=== PATIENT | female | born 1930 | race Caucasian/White ===

== ENCOUNTER 2016-06-28 16:22 | Inpatient (IN) | payer OTHER, MEDICARE ==
[2016-06-28] VITALS (22 sets, daily range): BP systolic 36–141; BP diastolic 22–86; PULSE 70–149; RESP 16–23; TEMP 92–95; O2SAT 62–100
[~2016-06-28] VITALS: Ht 157.5 cm; Wt 65.8 kg
[~2016-06-28 16:22] MED LIST: AMLO5TAB22 PO; ASPI81TA82 PO; ENAL10TA7 PO; EPINEPHrine HCL (1:10,000) 1 MG/10 ML SYRINGE IV ONE; LEVO50TA4 PO; PROT40TA PO; SODIUM BICARBONATE 8.4% INJ 50 MEQ/50 ML SYR IV ONE
[2016-06-28 16:40] LABS: AUTOMATED NEUTROPHIL # 6.7 TH/MM3 (1.8-7.7); BASOPHIL # 0.1 TH/MM3 (0-0.2); BASOPHIL % 0.9 % (0.0-2.0); EOSINOPHIL % 0.2 % (0.0-4.0); HEMATOCRIT 39.6 % (35.0-46.0); LYMPH % 26.5 % (9.0-44.0); LYMPHOCYTE # 2.5 TH/MM3 (1.0-4.8); MEAN CELL VOLUME 88.6 FL (80.0-100.0); MEAN CORPUSCULAR HEMOGLOBIN 30.1 PG (27.0-34.0); NEUT % 69.4 % (16.0-70.0); PLATELET COUNT 230 TH/MM3 (150-450); RED BLOOD COUNT 4.47 MIL/MM3 (4.00-5.30); RED CELL DISTRIBUTION WIDTH 12.5 % (11.6-17.2); WHITE BLOOD COUNT 9.6 TH/MM3 (4.0-11.0)
[2016-06-28] MEDS ORDERED: NOREPINEPHRINE 4 MG/4 ML AMP ONE (16:42)
[2016-06-28 16:49] LABS: HEMO FLAGS DIFF FINAL
[2016-06-28 16:53] LABS: BLOOD, URINE SMALL (NEG); GLUCOSE,URINE NEG (NEG); KETONE, URINE TRACE mg/dL (NEG); NITRITE,URINE NEG (NEG); PH, URINE 5.5 (5.0-8.5)
--- NOTE | 2016-06-28 16:53 | PD ---
HPI Chief Complaint: Code Blue Time Seen by Provider: 16:47 Travel History International Travel<30 days: No Contact w/Intl Traveler<30days: No Traveled to known affect area: No History of Present Illness HPI 85-year-old female brought in by ambulance in cardiac arrest. Apparently the patient had a fall while going to the mailbox which was unwitnessed. A nearby neighbor found her lying on the ground. She was brought inside. About 30 minutes later she was unresponsive. When EMS arrived she was pulseless, unresponsive, and in PEA. ACLS protocol started by them. Combitube placed. She was given 2 doses of epinephrine prior to arrival. For a brief moment she had ROSC with an apparent tachycardia. Upon arrival to the emergency department , CPR in progress, and ACLS protocol continued. Combitube replaced with a 7.5 [place] ET tube by me. Patient was given one amp of epi, 1 amp of bicarbonate, and one amp of calcium chloride with ROSC. Right femoral central line then placed. [place] cervical collar placed here in the emergency department. PFSH Past Medical History Heart Rhythm Problems: No Cardiac Catheterization: No Cardiovascular Problems: Yes High Cholesterol: No Congestive Heart Failure: No Diabetes: No Diminished Hearing: No Hypertension: Yes Thyroid Disease: Yes ?: Not Past Surgical History Coronary Artery Bypass Graft: No Hysterectomy: Yes Social History Alcohol Use: No Tobacco Use: No Substance Use: No Allergies-Medications (Allergen,Severity, Reaction): Coded Allergies: Sulfa (Verified Allergy, Unknown, N/V, 06/28/16) Penicillin (Verified Adverse Reaction, Mild, 06/28/16) Reported Meds & Prescriptions Reported Meds & Active Scripts Active Active Prescriptions or Reported Medications Unobtainable Review of Systems ROS Limitations: Clinical Condition, Unresponsive Physical Exam Narrative GENERAL: Well-developed, well-nourished, elderly-appearing female, unresponsive SKIN: Warm and dry. Superficial abrasions to right face. No other signs of trauma. HEAD: Skin exam as above. Normocephalic. EYES: Pupils equal and round, nonreactive, 5 mm. ENT: Combitube in place. Dark gastric contents in posterior pharynx, face, and neck. NECK: Trachea midline. No JVD. CARDIOVASCULAR: Pulseless. RESPIRATORY: No spontaneous respirations. Combitube/BVM. GASTROINTESTINAL: Abdomen soft, mildly distended. MUSCULOSKELETAL: No obvious deformities. No clubbing. No cyanosis. No edema. NEUROLOGICAL: Unresponsive. Data Data Last Documented VS Vital Signs Date Time Temp Pulse Resp B/P Pulse Ox O2 Delivery O2 Flow Rate FiO2 06/28/16 16:55 94 Bag Valve 06/28/16 16:50 100 06/28/16 16:50 107 16 52/36 06/28/16 16:27 95.0 Orders Complete Blood Count With Diff (06/28/16 16:32) Prothrombin Time / Inr (Pt) (06/28/16 16:32) Act Partial Throm Time (Ptt) (06/28/16 16:32) Type And Screen (06/28/16 16:32) Fibrinogen (06/28/16 16:32) Urinalysis - C+S If Indicated (06/28/16 16:32) Iv Access Insert/Monitor (06/28/16 16:32) Ecg Monitoring (06/28/16 16:32) Oximetry (06/28/16 16:32) Oxygen Administration (06/28/16 16:32) Comprehensive Metabolic Panel (06/28/16 16:40) Norepinephrine Inj (Levophed Inj) (06/28/16 16:42) Blood Culture (06/28/16 16:47) Ct Brain W/O Iv Contrast(Rout) (06/28/16 ) Ct Cerv Spine W/O Contrast (06/28/16 ) Chest, Single Ap (06/28/16 ) Norepinephrine-Dextrose Drip (Levophed-D (06/28/16 17:00) Terbutaline Inj (Brethine Inj) (06/28/16 17:00) Bruce-Gastric Tube Insert/Mon (06/28/16 16:47) Ckmb (Isoenzyme) Profile (06/28/16 16:55) Troponin I (06/28/16 16:55) Patient Transfer (06/28/16 ) CKMB (06/28/16 16:25) CKMB% (06/28/16 16:25) Labs Laboratory Tests Test 06/28/16 06/28/16 06/28/16 06/28/16 16:25 16:30 16:35 16:45 Sodium Level 123 MEQ/L Potassium Level 4.0 MEQ/L Chloride Level 84 MEQ/L Carbon Dioxide Level 11.9 MEQ/L Anion Gap 27 MEQ/L Blood Urea Nitrogen 33 MG/DL Creatinine 1.60 MG/DL Estimat Glomerular Filtration 31 ML/MIN Rate Random Glucose 227 MG/DL Calcium Level 9.7 MG/DL Total Bilirubin 1.8 MG/DL Aspartate Amino Transf 42 U/L (AST/SGOT) Alanine Aminotransferase 27 U/L (ALT/SGPT) Alkaline Phosphatase 82 U/L Total Creatine Kinase 236 U/L Creatine Kinase MB 8.2 NG/ML Creatine Kinase MB % 3.5 % Troponin I LESS THAN 0.02 NG/ML Total Protein 7.0 GM/DL Albumin 2.5 GM/DL Blood Type B POSITIVE Antibody Screen NEGATIVE Blood Bank Comment White Blood Count 9.6 TH/MM3 Red Blood Count 4.47 MIL/MM3 Hemoglobin 13.4 GM/DL Hematocrit 39.6 % Mean Corpuscular Volume 88.6 FL Mean Corpuscular Hemoglobin 30.1 PG Mean Corpuscular Hemoglobin 34.0 % Concent Red Cell Distribution Width 12.5 % Platelet Count 230 TH/MM3 Mean Platelet Volume 9.4 FL Neutrophils (%) (Auto) 69.4 % Lymphocytes (%) (Auto) 26.5 % Monocytes (%) (Auto) 3.0 % Eosinophils (%) (Auto) 0.2 % Basophils (%) (Auto) 0.9 % Neutrophils # (Auto) 6.7 TH/MM3 Lymphocytes # (Auto) 2.5 TH/MM3 Monocytes # (Auto) 0.3 TH/MM3 Eosinophils # (Auto) 0.0 TH/MM3 Basophils # (Auto) 0.1 TH/MM3 CBC Comment DIFF FINAL Differential Comment Prothrombin Time 10.8 SEC Prothromb Time International 1.0 RATIO Ratio Activated Partial 38.4 SEC Thromboplast Time Fibrinogen 667 mg/dL Urine Collection Type CATH Urine Color YELLOW Urine Turbidity CLEAR Urine pH 5.5 Urine Specific [place] 1.026 Urine Protein 100 mg/dL Urine Glucose (UA) NEG mg/dL Urine Ketones TRACE mg/dL Urine Occult Blood SMALL Urine Nitrite NEG Urine Bilirubin NEG Urine Leukocyte Esterase NEG Urine RBC 0-3 /hpf Urine WBC 0-2 /hpf Urine Amorphous Sediment FEW Microscopic Urinalysis Comment CATH-CULT NOT IND Urine Collection Time 16:45 Test 06/28/16 16:49 Lactic Acid Level 18.2 mmol/L [facility] Medical Decision Making Medical Screen Exam Complete: Yes Emergency Medical Condition: Yes Interpretation(s) EKG: Sinus, rate 72, rightward axis, RBBB, inferior and lateral ST depressions, no ST segment elevations. Differential Diagnosis Cardiac arrest, ND, intracranial trauma/ICH, cervical spine injury Narrative Course 5:05 PM: Case discussed with solar power installer Dr. Goodman. He agrees with emergent CT head and cervical spine here, and afterwards the patient will be emergently transferred to the ICU at the main hospital. Critical Care Narrative Aggregate critical care time was 45 minutes. Time to perform other separately billable procedures was not included in the critical care time. My time did not include minutes spent treating any other patients simultaneously or on activities that did not directly contribute to the patient's treatment. The services I provided to this patient were to treat and/or prevent clinically significant deterioration that could result in: I provided critical care services requiring my management, as noted below: Chart data review, documentation time, medication orders and management, vital sign assessments/reviewing monitor data, ordering and reviewing lab tests, ordering and interpreting/reviewing x-rays and diagnostic studies, care of the patient and discussion of the patient with the admitting physicians. Procedures Procedure Narrative Emergent intubation: The patient was put in optimal position for the procedure. The patient was intubated with a 7.5 cuffed endotracheal tube. Tube placement was confirmed by visualization of the tube and balloon passing through the cords, capnometry and subsequent chest x-ray. Breath sounds were equal and well aerated bilaterally postintubation. No breath sounds over stomach. Central line: CENTRAL VENOUS LINE: The site was prepped with ChloraPrep and sterilely draped. The deep vein was cannulated using normal Seldinger technique. A triple lumen central line was placed in the right femoral vein under ultrasound guidance site and secured with simple interrupted suture. The site was sterilely dressed. Diagnosis Primary Impression: Cardiac arrest Admitting Information Admitting Physician Requests: Admit Scripts Unable to Obtain Active Prescriptions or Reported Meds Pratik Billy MD Jun 28, 2016 16:53
[2016-06-28 16:54] LABS: APTT (PATIENT) 38.4 SEC (24.3-30.1); PROTHROMBIN TIME - PATIENT 10.8 SEC (9.8-11.6)
[2016-06-28] MEDS ORDERED: NOREPINEPHRINE-DEXTROSE DRIP 250 ML IV SCH (17:00)
[2016-06-28] MEDS ORDERED: TERBUTALINE INJ 1 MG/ML AMP SQ PRN ×2 (17:00→20:00)
[2016-06-28 17:01] LABS: ALKALINE PHOSPHATASE 82 U/L (45-117); ALT (GPT) 27 U/L (10-53); ANION GAP 27 MEQ/L (5-15); AST (GOT) 42 U/L (15-37); BICARBONATE 11.9 MEQ/L (21.0-32.0); BLOOD UREA NITROGEN 33 MG/DL (7-18); CHLORIDE 84 MEQ/L (98-107); GLOMERULAR FILTRATION RATE 31 ML/MIN (>89); TOTAL BILIRUBIN ADULT 1.8 MG/DL (0.2-1.0)
[2016-06-28 17:02] LABS: SODIUM (NA) 123 MEQ/L (136-145)
[2016-06-28 17:06] LABS: METHOD OF COLLECTION CATH
[2016-06-28 17:07] LABS: COMMENT (UR) CATH-CULT NOT IND; CULTURE IF INDICATED CATH CULTURE NOT IND; RBC, URINE 0-3 /hpf (0-3); URINE COLOR YELLOW (YELLW/STRAW); WBC, URINE 0-2 /hpf (0-5)
[2016-06-28] MEDS ORDERED: EPINEPHrine 2 MG/D5W 250 ML IV SCH ×2 (17:15)
--- NOTE | 2016-06-28 17:15 | RADHPO ---
EXAM DATE/TIME: 06/28/2016 16:51 [facility] COMPARISON: CHEST SINGLE AP, January 27, 2014, 18:18. INDICATIONS : Post intubation. MEDICAL HISTORY : Unobtainable. SURGICAL HISTORY : Unobtainable. ENCOUNTER: Initial ACUITY: 1 day PAIN SCORE: Non-responsive. LOCATION: chest FINDINGS: Central predominant infiltrates are seen of both lungs. No large effusion seen. No pneumothorax. Ther e is right hilar fullness. Normal heart size. Endotracheal tube tip is about 3 cm above the johnathon. There is a nasogastric tube coiled in the stoma ch. CONCLUSION: 1. Bilateral central infiltrates with differential of pneumonia and noncardiogenic pulmonary edema. 2. Right hilar lymphadenopathy or mass not excludable. A PA and lateral chest x-ray should be done wh en clinically feasible. 3. Appropriate position of the endotracheal and nasogastric tubes. Brad Garcia MD on June 28, 2016 at 17:11 Board Certified Radiologist. This report was verified electronically.
[2016-06-28 17:17] LABS: CREATINE KINASE 236 U/L (26-192)
[2016-06-28 17:21] LABS: BLOOD GAS BASE EXCESS -18.7 mmol/L (-2-2); BLOOD GAS CARBOXYHEMOGLOBIN 0.7 % (0-4); BLOOD GAS HCO3 12 mmol/L (22-26); BLOOD GAS METHEMOGLOBIN 1.5 % (0-2); BLOOD GAS O2 HGB SATURATION 83 % (90-100); BLOOD GAS OXYGEN CONTENT 13.7 Vol % (12.0-20.0); BLOOD GAS PCO2 61 mmHG (38-42); BLOOD GAS PO2 82 mmHG (61-120); BLOOD GAS TOTAL HGB 11.8 G/DL (12.0-16.0); TEMP CORR TO 98.6
[2016-06-28 17:22] LABS: CRITICAL VALUE YES; FIO2 100 %; OXYGEN DEVICE VENT; VENT SETTINGS AC16/VT500/PEEP8
[2016-06-28 17:23] LABS: DRAW SITE LT FEMORAL; NUMBER OF ARTERIAL PUNCTURES 1; STAT YES
[2016-06-28 17:29] LABS: CKMB 8.2 NG/ML (0.5-3.6)
[2016-06-28] MEDS ORDERED: SODIUM CHLOR 0.9% 1000 ML INJ 1,000 ML IV ONE ×2 (17:30→20:00)
--- NOTE | 2016-06-28 17:42 | RADHPO ---
EXAM DATE/TIME: 06/28/2016 17:25 [facility] COMPARISON: No previous studies available for comparison. INDICATIONS : Trauma, fall today. RADIATION DOSE: 62.23 CTDIvol (mGy) MEDICAL HISTORY : Hypertension. SURGICAL HISTORY : Hysterectomy. ENCOUNTER: Initial ACUITY: 1 day PAIN SCALE: Non-responsive LOCATION: Bilateral head TECHNIQUE: Multiple contiguous axial images were obtained of the head. Using automated exposure control and adj ustment of the mA and/or kV according to patient size, radiation dose was kept as low as reasonably a chievable to obtain optimal diagnostic quality images. FINDINGS: CEREBRUM: Periventricular low attenuation changes seen involving both cerebral hemispheres. This is symmetrical in nature. The ventricles are normal for age. No evidence of midline shift, mass lesion, hemorrhage or acute infarction. No extra-axial fluid collections are seen. POSTERIOR FOSSA: The cerebellum and brainstem are intact. The 4th ventricle is midline. The cerebellopontine angle i s unremarkable. EXTRACRANIAL: The visualized portion of the orbits is intact. SKULL: The calvaria is intact. No evidence of skull fracture. CONCLUSION: 1. No acute intracranial abnormality. 2. Chronic small vessel ischemic change. Alfonso Goodman Jr., MD on June 28, 2016 at 17:36 Board Certified Radiologist. This report was verified electronically.
--- NOTE | 2016-06-28 18:00 | RADHPO ---
EXAM DATE/TIME: 06/28/2016 17:25 [facility] COMPARISON: No previous studies available for comparison. INDICATIONS : Trauma, fall today. RADIATION DOSE: 26.45 CTDIvol (mGy) MEDICAL HISTORY : Hypertension. SURGICAL HISTORY : Hysterectomy. ENCOUNTER: Initial ACUITY: 1 day PAIN SCALE: Non-responsive LOCATION: Bilateral neck TECHNIQUE: Volumetric scanning of the cervical spine was performed. Multiplanar reconstructions in the sagittal, coronal and oblique axial planes were performed. Using automated exposure control and adjustment o f the mA and/or kV according to patient size, radiation dose was kept as low as reasonably achievable to obtain optimal diagnostic quality images. FINDINGS: VERTEBRAE: Normal vertebral body height. ALIGNMENT: No evidence of subluxation. Parapharyngeal air is seen extending down to the level of the superior mediastinum. This tracks poste rior to the trachea and esophagus. An endotracheal tube and nasogastric tube are noted. Consolidation is partially seen involving the right lung apex. Bilateral small pleural effusions are seen. C2-C3: The bony spinal canal is normal in size. No evidence of disc bulge or herniation. The neural forami na are bilaterally patent. C3-C4: Mild central bulge. No abutment of the cord or central canal stenosis. Neural foramina are patent. C4-C5: Mild central bulge. No abutment of the cord or central canal stenosis. Neural foramina are patent. C5-C6: There is disc space narrowing with a broad-based disc osteophyte complex without central canal stenos is or abutment of the cord. Uncovertebral hypertrophy generates mild bilateral neural foraminal narro wing. C6-C7: The bony spinal canal is normal in size. No evidence of disc bulge or herniation. The neural forami na are bilaterally patent. C7-T1: The bony spinal canal is normal in size. No evidence of disc bulge or herniation. The neural forami na are bilaterally patent. CONCLUSION: 1. No fracture or dislocation. 2. Degenerative changes of the cervical spine. 3. Retropharyngeal and superior mediastinal air. This could relate to traumatic intubation. 4. Small bilateral pleural effusions partially seen as well as consolidation involving the right lung apex. Alfonso Goodman Jr., MD on June 28, 2016 at 17:53 Board Certified Radiologist. This report was verified electronically.
[2016-06-28] MEDS: EPINEPHrine (1:1000) INJ 2 MG in DEXTROSE 5% IN WATER INJ 248 ML IV SCH ×6 (18:23→23:51)
[2016-06-28] MEDS ORDERED: VASOPRESSIN INJ 40 UNITS in DEXTROSE 5% IN WATER 100ML INJ 98 ML IV SCH ×2 (19:48)
[2016-06-28] MEDS ORDERED: NOREPINEPHRINE INJ 4 MG in SODIUM CHLOR 0.9% 250 ML INJ 246 ML IV SCH (20:00)
[2016-06-28] MEDS ORDERED: SODIUM BICARBONATE 8.4% INJ 50 MEQ/50 ML SYR IV PUSH ONE (20:00)
[2016-06-28] MEDS: SODIUM BICARBONATE 8.4% INJ 150 MEQ in WATER STERILE FOR INJ 850 ML IV SCH (20:04)
[2016-06-28] MEDS ORDERED: ACETAMINOPHEN 325 MG TAB PO PRN (20:15)
[2016-06-28] MEDS ORDERED: RESP: ALBUTEROL 2.5 MG/3 ML NEB (PRN) INH (20:15)
[2016-06-28] MEDS ORDERED: PANTOPRAZOLE SODIUM 40 MG VIAL IV SCH (20:15)
[2016-06-28] MEDS ORDERED: CHLORHEXIDINE GLUCONATE 2 % 1 PACK (2 CLOTHS) TOP PRN (20:15)
[2016-06-28] MEDS ORDERED: ONDANSETRON HCL 4 MG/2 ML VIAL IV PRN (20:15)
[2016-06-28] MEDS ORDERED: MISCELLANEOUS NURSING INFORMATION XX SCH (20:15)
[2016-06-28] MEDS ORDERED: SODIUM CHLORIDE 0.9% FLUSH 5 ML FLUSH IV FLUSH PRN (20:15)
[2016-06-28] MEDS: NOREPINEPHRINE-DEXTROSE DRIP 250 ML IV SCH ×2 (20:16→23:13)
[2016-06-28] MEDS ORDERED: GLUCAGON 1 MG/ML VIAL OTHER PRN (20:30)
[2016-06-28] MEDS ORDERED: DEXTROSE 50% IN WATER 50 ML VIAL(D50) IV PUSH PRN (20:30)
--- NOTE | 2016-06-28 20:32 | HHI.HP ---
[facility] Service Critical Care Medicine Primary Care Physician Unknown Admission Diagnosis cardiac arrest Diagnosis: Travel History International Travel<30 Days: No Contact w/Intl Traveler <30 Da: No Traveled to Known Affected Are: No History of Present Illness Unable to obtain history from patient as she is unresponsive. There is no family at bedside. History obtained from EMR. 85-year-old female with past medical history of hypertension, dyslipidemia, hypothyroidism who presents to [facility] emergency department via [facility] as a cardiac arrest. She either had a fall or collapsed while going to the mailbox and a neighbor found her laying on the ground. She was brought inside and after about 30 minutes she was unresponsive. Upon [facility] arrival she was in PEA and ACLS was initiated. Combitube was placed per [facility]. She was given epinephrine 2 doses per [facility] and had a brief period of ROSC with tachycardia but upon arrival to ED CPR was again in process. Combitube was removed and she was intubated with a 7.[address] Billy. She was given an additional epinephrine 1 mg, 1 amp bicarb, and one amp of calcium chloride and then had [place]. Right femoral central line was placed. She was placed in a [place] cervical collar in the ED. CT brain demonstrated no acute intracranial abnormality. There is chronic small vessel ischemic changes. CT C-spine demonstrated no evidence of fracture or dislocation. There was retropharyngeal and superior mediastinal subcutaneous emphysema which per radiology report could be consistent with traumatic intubation. There was consolidation in the right upper lobe. Chest x-ray demonstrated bilateral perihilar infiltrates. There was no appreciable pneumothorax. Her core temp was 95. She is hyponatremic with a corrected sodium of 126. She has acute kidney injury with a creatinine of 1.6 with a baseline creatinine of 0.48 in 2014. Her troponin is 0.02. Her lactic acid is 18 post arrest. She is in shock on epinephrine 10 mcg/m, norepinephrine 30 mcg/m with a mean arterial pressure of 55. There is some report that she had been vomiting after her collapse. Review of Systems ROS Limitations: Clinical Condition, Intubated, Altered Mental Status, Unresponsive Past Family Social History Allergies: Coded Allergies: Sulfa (Verified Allergy, Unknown, N/V, 06/28/16) Penicillin (Verified Adverse Reaction, Mild, 06/28/16) Past Medical History Hypertension Hyperlipidemia Hypothyroidism No history of coronary artery disease. She had a negative Natalie scan 8/2/14 Past Surgical History Unable to obtain from patient as she is intubated. Reviewed records in EMR which indicated: D&C for miscarriage Hysterectomy Colonoscopy and endoscopy Reported Medications Unable to obtain secondary to patient's clinical condition. Prior records indicated that she took Aspirin Enalapril Synthroid Norvasc Family History Unable to obtain secondary to patient's medical condition. Social History Unable to obtain from patient due to her clinical condition Records indicate that she was a and lifetime nonsmoker. She drinks alcohol occasionally and does not use illicit drugs. Physical Exam Vital Signs Vital Signs Date Time Temp Pulse Resp B/P Pulse Ox O2 Delivery O2 Flow Rate FiO2 06/28/16 18:15 80 16 60/36 66 Ventilator 06/28/16 18:10 80 16 61/37 66 Ventilator 06/28/16 17:55 84 16 66/38 63 Ventilator 06/28/16 17:55 100 06/28/16 17:50 84 16 50/35 62 Ventilator 06/28/16 17:45 84 16 44/35 64 Ventilator 06/28/16 17:45 74 100 06/28/16 17:40 92 16 73/33 71 Ventilator 06/28/16 17:35 94 16 51/31 78 Ventilator 06/28/16 17:30 80 100 06/28/16 17:20 82 100 06/28/16 17:15 114 16 129/63 92 Ventilator 06/28/16 17:10 94 16 42/33 86 Ventilator 06/28/16 16:55 94 Bag Valve 06/28/16 16:50 80 100 06/28/16 16:50 107 16 52/36 86 06/28/16 16:43 149 16 120/86 84 06/28/16 16:35 116 16 36/22 100 06/28/16 16:27 95.0 16 141/69 94 Physical Exam Drips: Epinephrine 10 g/m levophed 40 mcg/min GENERAL: Elderly female who is orotracheally intubated. She has been on no sedation. She is unresponsive. SKIN: Dry, peripherally cool. HEAD: Normocephalic. Abrasion overlying nose. EYES: Right pupil 4 mm and nonreactive, L pupil pinpoint and nonreactive. No scleral icterus. No injection or drainage. ENT: No nasal bleeding or discharge. Mucous membranes pink and moist. NECK: Trachea midline. No JVD. CARDIOVASCULAR: irregular, No murmurs rubs or gallops. RESPIRATORY: Moderate/large amount Subcut emphysema overlying neck, L shoulder, L chest. Coarse bilateral rales bilaterally. No wheeze. GASTROINTESTINAL: Abdomen mildly distended, soft, unable to appreciate tenderness but patient is unresponsive, no bowel sounds : Larry in place with minimal sybil urine. MUSCULOSKELETAL: Extremities without clubbing, cyanosis, or edema. No obvious deformities. NEUROLOGICAL: Unresponsive. Pupils as per above. No motor response to deep noxious stimuli. Laboratory Laboratory Tests Test 06/28/16 06/28/16 06/28/16 06/28/16 16:25 16:30 16:35 16:45 Sodium Level 123 Potassium Level 4.0 Chloride Level 84 Carbon Dioxide Level 11.9 Anion Gap 27 Blood Urea Nitrogen 33 Creatinine 1.60 Estimat Glomerular Filtration 31 Rate Random Glucose 227 Calcium Level 9.7 Total Bilirubin 1.8 Aspartate Amino Transf 42 (AST/SGOT) Alanine Aminotransferase 27 (ALT/SGPT) Alkaline Phosphatase 82 Total Creatine Kinase 236 Creatine Kinase MB 8.2 Creatine Kinase MB % 3.5 Troponin I LESS THAN 0.02 Total Protein 7.0 Albumin 2.5 Blood Type B POSITIVE Antibody Screen NEGATIVE Blood Bank Comment White Blood Count 9.6 Red Blood Count 4.47 Hemoglobin 13.4 Hematocrit 39.6 Mean Corpuscular Volume 88.6 Mean Corpuscular Hemoglobin 30.1 Mean Corpuscular Hemoglobin 34.0 Concent Red Cell Distribution Width 12.5 Platelet Count 230 Mean Platelet Volume 9.4 Neutrophils (%) (Auto) 69.4 Lymphocytes (%) (Auto) 26.5 Monocytes (%) (Auto) 3.0 Eosinophils (%) (Auto) 0.2 Basophils (%) (Auto) 0.9 Neutrophils # (Auto) 6.7 Lymphocytes # (Auto) 2.5 Monocytes # (Auto) 0.3 Eosinophils # (Auto) 0.0 Basophils # (Auto) 0.1 CBC Comment DIFF FINAL Differential Comment Prothrombin Time 10.8 Prothromb Time International 1.0 Ratio Activated Partial 38.4 Thromboplast Time Fibrinogen 667 Urine Collection Type CATH Urine Color YELLOW Urine Turbidity CLEAR Urine pH 5.5 Urine Specific [place] 1.026 Urine Protein 100 Urine Glucose (UA) NEG Urine Ketones TRACE Urine Occult Blood SMALL Urine Nitrite NEG Urine Bilirubin NEG Urine Leukocyte Esterase NEG Urine RBC 0-3 Urine WBC 0-2 Urine Amorphous Sediment FEW Microscopic Urinalysis Comment CATH-CULT NOT IND Urine Collection Time 16:45 Test 06/28/16 06/28/16 16:49 17:15 Lactic Acid Level 18.2 Blood Gas Puncture Site LT FEMORAL Blood Gas Patient Temperature 98.6 Blood Gas HCO3 12 Blood Gas Base Excess -18.7 Blood Gas Oxygen Saturation 83 Arterial Blood pH 6.91 Arterial Blood Partial 61 Pressure CO2 Arterial Blood Partial 82 Pressure O2 Arterial Blood Oxygen Content 13.7 Arterial Blood 0.7 Carboxyhemoglobin Arterial Blood Methemoglobin 1.5 Blood Gas Hemoglobin 11.8 Oxygen Delivery Device VENT Blood Gas Ventilator Setting AC16/VT500/PEEP8 Blood Gas Inspired Oxygen 100 Date/Time Procedure Status Source Growth 06/28/16 16:49 Aerobic Blood Culture Received Blood Peripheral Pending 06/28/16 16:49 Anaerobic Blood Culture Received Blood Peripheral Pending Result Diagram: 06/28/16 1635 06/28/16 1625 Assessment and Plan Assessment and Plan NEURO: Acute encephalopathy, likely secondary to anoxia Degenerative changes of cervical spine CT brain 06/28/16no acute intercranial abnormality. Chronic small vessel ischemic changes CT C-spineno fracture dislocation. Degenerative changes She is not a candidate for induced therapeutic hypothermia due to severe hemodynamic instability. RESP: Acute hypoxemic and hypercapnic respiratory failure Bilateral pulmonary infiltrates which most likely represent pulmonary edema Pneumomediastinum ?traumatic intubation, ?Boerhaave's esophagus secondary to vomiting L pneumothorax Bilateral pleural effusion Ventilator bundle. Check stat ABG now. DuoNeb every 6 hours. Albuterol every 2 hours when necessary. L chest tube placement. Differential or pneumomediastinum includes traumatic intubation however with patient's recent history of vomiting there is certainly concern for Boerhaave's esophagus. Will obtain CT chest abdomen and pelvis this patient can be stabilized adequately to do so. However she remains in profound shock with inability to oxygenate. CV: PEA cardiac arrest Cardiogenic shock post cardiac arrest History of hypertension Remains in shock despite epinephrine and norepinephrine drips to maintain mean arterial pressure greater than 65. Add vasopressin. Add hydrocortisone 100 mg IV every 8 hours. Serial lactic acid Serial cardiac markers. Obtain 2-D echo. GI: Reported symptom of vomiting Nothing by mouth. OGT tube in place. Place to low intermittent wall suction. Initiate enteral feeds within 24 hours. Mild elevation of total bilirubin and AST. We'll monitor LFTs postarrest. Check lipase. Will do CT abdomen and pelvis when obtain CT chest if she stabilizes adequately to obtain this FEN/RENAL: Acute severe and anion gap metabolic acidosis with concomitant respiratory acidosis on mechanical ventilation. Acute kidney injury Hyponatremia Larry in place. She is oliguric. Monitor intake and output. Monitor electrolytes. Check magnesium and phosphorus stat. ID: She has bilateral pulmonary opacities which may represent pulmonary edema. It is also very likely that she aspirated. It is unclear that there may have been some other septic process that prompted her collapse and PEA arrest or even Boerhaaves since she had been vomiting. Nonetheless she is in extremis so will provide empiric antimicrobial therapy and will check influenza screen, sputum culture, urine Legionella antigen (which can be associated with hyponatremia). Follow-up blood cultures that were ordered in the emergency department. Calculated creatinine clearance 27. Aztrenam 500 mg IV q8, Vancomycin one dose 1500 mg IV now, Flagyl 500 mg IV q8. Levaquin 750 mg IV x1, would not need another dose for 48 hours based on current renal function so can reassess culture data at that time. Reported history of mild adverse reactions to sulfa and penicillin allergy from prior records. HEME: Monitor CBC ENDO: Acute hyperglycemia It may be secondary to stress.. Patient does not carry a known history of diabetes according to records from 2013. Hypothyroidism Unknown current home Synthroid dose; will need to obtain. Will check TSH. PROPH: Will initiate heparin subcutaneous for DVT prophylaxis if heparin drip is not indicated. Protonix 40 mg IV daily for stress ulcer prophylaxis. ACCESS: Right femoral central venous line placed in ED 06/28/16. Place left femoral art line 06/28/16 She is currently full code. She is not capacitated for medical decision- making. She was brought in by a neighbor. There is no family contact information in [employer]. There is no family at bedside. We'll contact neighbor to see if they have any contact information. Unable to find any family contact with review of old records. Critical care time 75 minutes exclusive of separately billable procedures. Crys Singh MD Jun 28, 2016 20:32
[2016-06-28] MEDS ORDERED: VANCOMYCIN INJ 1,300 MG in SODIUM CHLORID 0.9% 500 ML INJ 500 ML IV ONE (21:00)
[2016-06-28] MEDS ORDERED: SODIUM CHLORIDE 0.9% FLUSH 5 ML FLUSH IV FLUSH SCH (21:00)
[2016-06-28] MEDS ORDERED: INSULIN ASPART SUPPLEMENTAL SCALE SQ SCH (21:00)
[2016-06-28] MEDS ORDERED: DOCUSATE SODIUM 100 MG CAP TUBE SCH (21:00)
--- NOTE | 2016-06-28 21:00 | RADRPT ---
EXAM DATE/TIME: 06/28/2016 20:23 [facility] COMPARISON: 4:51 PM earlier today. INDICATIONS : Post-CPR, Evaluate for Pneumothorax. MEDICAL HISTORY : Hypertension. SURGICAL HISTORY : Hysterectomy. ENCOUNTER: Initial ACUITY: 1 day PAIN SCORE: Non-responsive. LOCATION: Bilateral chest FINDINGS: Extensive chest wall emphysema has developed. Left basal pneumothorax suspected and there also appear s to be pneumomediastinum. I don't clearly see a pneumothorax on the right but there is definitely a right chest wall emphysema. Endotracheal tube tip is not significantly changed, about 3 cm above the johnathon. Nasogastric tube rem ains coiled in the stomach. Bilateral perihilar infiltrates persist, not significantly changed. CONCLUSION: Left pneumothorax, apparent pneumomediastinum and extensive chest wall emphysema have developed. Katie trauma or ruptured esophagus should be included in the differential. Report called to the floor nurse . Brad Garcia MD on June 28, 2016 at 20:54 Board Certified Radiologist. This report was verified electronically.
[2016-06-28] MEDS ORDERED: LEVOFLOXACIN 750 MG PREMIX INJ 150 ML IV ONE (21:15)
[2016-06-28] MEDS ORDERED: HYDROCORTISONE SOD SUCCINATE 100 MG VIAL IV PUSH SCH (22:00)
[2016-06-28] MEDS ORDERED: AZTREONAM INJ 500 MG in SODIUM CHLORIDE 0.9% INJ 100 ML IV SCH (22:00)
[2016-06-28] MEDS ORDERED: metroNIDAZOLE 500 MG INJ 100 ML IV SCH (22:00)
--- NOTE | 2016-06-28 22:31 | PD.PROCEDR ---
Procedure Note Procedure Procedure: Left chest tube placement Indication: Acute left pneumothorax Details of procedure: Patient was not capacitated for medical decision-making. There is absolutely no family contact information available. Procedure was done emergently as patient is in extremis. The patient was laid supine. The lateral chest wall was cleaned with ChloraPrep twice. Regional sterile drapes were applied. 1% lidocaine was used for local anesthesia and injected into the subcutaneous and deep muscle tissues. A 2 cm skin incision was made with a scalpel blade. A hemostat was used for blunt dissection. The hemostat was entered into the pleural space superior to the rib with release of small amount of air and serous sanguinous fluid. I explored the wound with my finger, ribs were fractured. . A size 28 Setswana chest tube was inserted with a Archana clamp into the pleural cavity and directed toward the apex. 2-0 silk was used to close the wound and to secure the chest tube. A sterile Vaseline gauze dressing was applied. The chest tube was connected to a Pleur-evac drainage system -20 cm. There was a minimal air leak that resolved within a few breaths. There was 20 ml of serosanguineous output from the chest tube. Estimated blood loss: <5 mL Complications: None. Stat chest x-ray is pending Crys Singh MD Jun 28, 2016 22:31
--- NOTE | 2016-06-28 22:33 | PD.PROCEDR ---
Procedure Note Procedure DATE: 06/28/16 PROCEDURE: Left femoral arterial catheter placement INDICATION: Shock, hypoxemia and need for hemodynamic and ABG monitoring. DETAILS OF PROCEDURE The patient was placed in supine position. The skin was cleansed with Chloraprep 3. Additional barrier precautions included large sterile drape, sterile gloves, sterile gown, face mask, and hat. 1% lidocaine was used for local anesthesia. Under direct ultrasound guidnce and on the first attempt, the artery was accessed with an introducer needle. The guide wire was advanced. Using Seldinger technique 18 gauge 16 cm femoral arterial catheter was placed. The guide wire was removed. The catheter was connected to a transducer line and flushed with saline. The video monitor displayed normal arterial wave forms. The catheter was secured with 2-0 silk. A sterile dressing with antibiotic disc was applied. ESTIMATED BLOOD LOSS: minimal COMPLICATIONS: None Crys Singh MD Jun 28, 2016 22:33
[2016-06-28 22:46] LABS: BLOOD GAS BASE EXCESS -10.3 mmol/L (-2-2); BLOOD GAS CARBOXYHEMOGLOBIN 0.8 % (0-4); BLOOD GAS HCO3 16 mmol/L (22-26); BLOOD GAS O2 HGB SATURATION 72 % (90-100); BLOOD GAS OXYGEN CONTENT 14.3 Vol % (12.0-20.0); BLOOD GAS PCO2 37 mmHg (38-42); BLOOD GAS PO2 46 mmHg (61-120); BLOOD GAS TOTAL HGB 14.1 G/DL (12.0-16.0); TEMP CORR TO 98.6
[2016-06-28 22:47] LABS: CRITICAL VALUE YES; OXYGEN DEVICE VENTILATOR; VENT SETTINGS PC/26/IP24/
[2016-06-28 22:48] LABS: DRAW SITE ART LINE; FIO2 100 %; STAT NO
--- NOTE | 2016-06-28 22:57 | RADRPT ---
EXAM DATE/TIME: 06/28/2016 22:31 [facility] COMPARISON: CHEST SINGLE AP, June 28, 2016, 20:23. INDICATIONS : Pneumothorax, chest tube placement. MEDICAL HISTORY : Hypertension. SURGICAL HISTORY : Hysterectomy. ENCOUNTER: Subsequent ACUITY: 1 day PAIN SCORE: Non-responsive. LOCATION: Chest. FINDINGS: A left chest tube has been placed, tip at the medial apex. An at least small basilar pneumothorax oscar ears to persist. There is extensive chest wall emphysema again noted on both sides. I don't aments we see a right pneumothorax. Perihilar predominant bilateral consolidation again seen, left more so than right and not significant ly changed. No large effusion demonstrated. Endotracheal tube tip unchanged, about 4 cm above the johnathon. Nasogastric tube again seen in the stom ach. CONCLUSION: Left chest tube now present. An at least small basilar pneumothorax persists. No tension seen. No oth er change. Please see above. Brad Garcia MD on June 28, 2016 at 22:54 Board Certified Radiologist. This report was verified electronically.
[2016-06-28] MEDS ORDERED: MIDAZOLAM HCL 2 MG/2 ML VIAL IV PUSH PRN (23:00)
[2016-06-28] MEDS ORDERED: CISATRACURIUM BESYLATE 20 MG/10 ML VIAL IVP ONE (23:00)
[2016-06-28] MEDS ORDERED: FLUCONAZOLE 200 MG PREMIX BAG 100 ML IV SCH (23:00)
[2016-06-28] MEDS ORDERED: CISATRACURIUM INJ 100 MG in SODIUM CHLOR 0.9% 250 ML INJ 240 ML IV SCH (23:00)
[2016-06-28] MEDS ORDERED: fentaNYL DRIP 250 ML IV SCH (23:00)
[2016-06-28] MEDS: RESP: ALBUTEROL 2.5 MG/IPRATROPIUM 0.5 MG NEB (SCH) INH (23:01)
[2016-06-29] VITALS: BP 88/41; PULSE 101; PULSE 90; RESP 26; TEMP 91.2; O2SAT 66
[2016-06-29 00:40] VITALS: O2SAT 59
[2016-06-29] MEDS: NOREPINEPHRINE-DEXTROSE DRIP 250 ML IV SCH ×2 (00:57→02:54)
[2016-06-29] MEDS ORDERED: EPINEPHrine HCL (1:10,000) 1 MG/10 ML SYRINGE ONE (01:26)
[2016-06-29] MEDS: EPINEPHrine (1:1000) INJ 2 MG in DEXTROSE 5% IN WATER INJ 248 ML IV SCH ×6 (01:32→03:25)
[2016-06-29] MEDS: SODIUM BICARBONATE 8.4% INJ 150 MEQ in WATER STERILE FOR INJ 850 ML IV SCH (02:54)
[2016-06-29 03:45] VITALS: O2SAT 45
[2016-06-29] MEDS ORDERED: NOREPINEPHRINE 16 MG/D5W 250 ML IV SCH ×2 (03:45)
[2016-06-29] MEDS ORDERED: EPINEPHrine 8 MG/D5W 250 ML IV SCH ×2 (03:45)
[2016-06-29 04:00] VITALS: BP 72/41; PULSE 88; PULSE 89; RESP 26; TEMP 91.7; O2SAT 43
[2016-06-29] MEDS ORDERED: CHLORHEXIDINE GLUCONATE 2 % 1 PACK (2 CLOTHS) TOP SCH (04:00)
[2016-06-29 04:37] LABS: HEMATOCRIT 31.6 % (35.0-46.0); MEAN CELL VOLUME 88.5 FL (80.0-100.0); MEAN CORPUSCULAR HEMOGLOBIN 29.6 PG (27.0-34.0); MEAN CORPUSCULAR HGB CONC 33.4 % (32.0-36.0); PLATELET COUNT 151 TH/MM3 (150-450); RED BLOOD COUNT 3.57 MIL/MM3 (4.00-5.30); RED CELL DISTRIBUTION WIDTH 13.4 % (11.6-17.2); WHITE BLOOD COUNT 1.6 TH/MM3 (4.0-11.0)
[2016-06-29 04:58] LABS: ALT (GPT) 91 U/L (10-53); ANION GAP 19 MEQ/L (5-15); AST (GOT) 253 U/L (15-37); BICARBONATE 18.3 MEQ/L (21.0-32.0); BLOOD UREA NITROGEN 33 MG/DL (7-18); CHLORIDE 90 MEQ/L (98-107); GLOMERULAR FILTRATION RATE 34 ML/MIN (>89); SODIUM (NA) 127 MEQ/L (136-145)
[2016-06-29] MEDS: RESP: ALBUTEROL 2.5 MG/IPRATROPIUM 0.5 MG NEB (SCH) INH (05:00)
[2016-06-29 05:02] LABS: ALKALINE PHOSPHATASE 56 U/L (45-117); TOTAL BILIRUBIN ADULT 1.7 MG/DL (0.2-1.0)
[2016-06-29 05:04] LABS: POTASSIUM 2.3 MEQ/L (3.5-5.1)
[2016-06-29 05:20] LABS: REVIEW FLAG FINAL
--- NOTE | 2016-06-29 05:40 | PD.PROCEDR ---
Procedure Note Procedure Date: 06/29/16 Procedure: Cardiopulmonary resucitation Indication: PEA cardiac arrest Details of procedure: Pt has had refractory hypotension and hypoxemia all night despite multiple vasopressors, ventilator adjustment, chest tube placement, paralytic.. Per ACLS protocol pt received CPR, manual bag-valve ventilation via ETT, epinephrine x2, bicarb x1 and there was ROSC after 7 minutes however she remains in profound shock despite max dose of multiple vasopressors and stress dose steroids. SBP 40-60 and sats 40%. Impending code again but there is nothing else to offer this unfortunate patient. Unfortunately, unable to reach family for update. Crys Singh MD Jun 29, 2016 05:40
[2016-06-29 05:58] LABS: BLOOD GAS BASE EXCESS -12.2 mmol/L (-2-2); BLOOD GAS CARBOXYHEMOGLOBIN 0.6 % (0-4); BLOOD GAS HCO3 17 mmol/L (22-26); BLOOD GAS O2 HGB SATURATION 56 % (90-100); BLOOD GAS PCO2 71 mmHg (38-42); BLOOD GAS PO2 41 mmHg (61-120); TEMP CORR TO 98.6
[2016-06-29 05:59] LABS: CRITICAL VALUE YES; OXYGEN DEVICE VENTILATOR
[2016-06-29 06:01] LABS: DRAW SITE ART LINE; FIO2 100 %; STAT YES; VENT SETTINGS PC/AC
[2016-06-29 06:23] VITALS: PULSE 0
[2016-06-29 06:24] LABS: BICARBONATE 18.5 MEQ/L (21.0-32.0); MAGNESIUM 2.1 MG/DL (1.5-2.5); TOTAL BILIRUBIN ADULT 1.5 MG/DL (0.2-1.0)
[2016-06-29 06:25] LABS: POTASSIUM 2.2 MEQ/L (3.5-5.1)
[2016-06-29 06:57] LABS: AUTOMATED NEUTROPHIL # 1.3 TH/MM3 (1.8-7.7); BASOPHIL % 0.2 % (0.0-2.0); EOSINOPHIL % 1.1 % (0.0-4.0); HEMATOCRIT 29.3 % (35.0-46.0); LYMPH % 37.9 % (9.0-44.0); LYMPHOCYTE # 0.8 TH/MM3 (1.0-4.8); MEAN CELL VOLUME 89.6 FL (80.0-100.0); MEAN CORPUSCULAR HGB CONC 32.3 % (32.0-36.0); MONO % 1.2 % (0.0-8.0); NEUT % 59.6 % (16.0-70.0); RED BLOOD COUNT 3.27 MIL/MM3 (4.00-5.30); WHITE BLOOD COUNT 2.1 TH/MM3 (4.0-11.0)
--- NOTE | 2016-06-29 07:04 | HHI.PR ---
Addendum to Inpatient Note Addendum Reason: Additional Documentation Additional Information Residents responded to CODE BLUE heard via pager at approximately 0515; nursing staff using ACLS protocol and resident arrival. Discussed case nursing staff; patient was found to be without pulse after previously being hypoxic with O2 sats in 40s; code initiated for PEA. Patient on bicarbonate, vasopressin, epinephrine, Levophed IV drips during code; epinephrine was administered every 3 minutes 2 and 1 amp of bicarbonate administered. Code ran by limousine rental clerk Dr. Singh on arrival; patient regained ROSC after ~7 minutes of ACLS protocol. Seen and discussed with Geronimo Parker MD R2 Jun 29, 2016 07:04
[2016-06-29 07:10] LABS: HEMO FLAGS AUTO DIFF
[2016-06-29 07:19] LABS: ACANTHOCYTES 1+ (NORMAL); BANDS 25 % (0-6); BURR CELLS 1+ (NORMAL); METAMYELOCYTES 2 % (0-1); MYELOCYTES 1 % (0-0); NEUTROPHIL # MANUAL DIFF 1.4 TH/MM3 (1.8-7.7); PLATELET ESTIMATE SMEAR NORMAL (NORMAL); PLATELET MORPHOLOGY CLUMPED (NORMAL); POLYS (SEG NEUTROPHILS) 40 % (16-70); SCAN/DIFF FINAL DIFF MANUAL; TOXIC GRANULATION 1+ (NORMAL); WBC DIFF SAMPLE 100
[2016-06-29] MEDS ORDERED: CHLORHEXIDINE 0.12% (ORAL KIT) 15 ML CUP MT SCH (08:00)
[2016-06-29] MEDS ORDERED: ARTIFICIAL TEARS OPTH SOLN 15 ML BTL EACH EYE SCH (09:00)
--- NOTE | 2016-06-29 13:14 | EKG ---
Date Performed: 06/28/2016 Time Performed: 16:54:14 PTAGE: 85 years EKG: Sinus rhythm with PAC(s). Rightward axis Right bundle branch block Inferior/lateral ST-T changes suggest myocardi al injury/ischemia Low QRS voltages in precordial leads Abnormal ECG Compared to PREVIOUS TRACING , the patient has developed a complete right bundle branch block. The ST segment elevation in leads V1 and V2 is a new finding as is the diffuse ST segment depression. Signi ficant serial changes have occurred and clinical correlation will be important. PREVIOUS TRACIN07/2013 01.07 DOCTOR: Natalie Amos Interpretating Date/Time 06/29/2016 13:13:51
--- NOTE | 2016-06-29 13:15 | EKG ---
Date Performed: 06/28/2016 Time Performed: 21:00:02 PTAGE: 85 years EKG: Sinus rhythm with PAC(s) Poor R wave progression - probable normal variant Inferior/lateral ST-T changes are nons pecific Low QRS voltages in precordial leads Borderline ECG Compared to PREVIOUS TRACING , the right bundle branch block is no longer evident and there has been improvement but persistence in the diffuse ST-T wave changes. The QT interval appears prolonged for t he heart rate. There has been an increase in the atrial ectopy. PREVIOUS TRACIN06/28/2016 16.54 DOCTOR: Natalie Amos Interpretating Date/Time 06/29/2016 13:15:04
--- NOTE | 2016-06-29 13:36 | EKG ---
Date Performed: 06/29/2016 Time Performed: 03:04:46 PTAGE: 85 years EKG: Sinus rhythm with PAC(s) IV conduction defect Poor R wave progression - probable normal variant Inferior/lateral ST-T changes may be due to myocardial ischemia Low QRS voltages in precordial leads Since previous tr acing, no significant change noted Abnormal ECG PREVIOUS TRACING : 06/28/2016 21.00 DOCTOR: Natalie Amos Interpretating Date/Time 06/29/2016 13:31:55
--- NOTE | 2016-07-02 08:41 | HHI.DS ---
Summary Note Date of : Jun 29, 2016 Time Of : 622 Admission Date Jun 28, 2016 at 17:05 Admitting Diagnosis cardiac arrest Diagnosis at Time of : (1) Cardiac arrest ICD Code: I46.9 Diagnosis: Principal (2) Pneumothorax ICD Code: J93.9 Diagnosis: Secondary (3) Respiratory failure, acute ICD Code: J96.00 Diagnosis: Principal (4) Pneumomediastinum ICD Code: J98.2 Diagnosis: Principal (5) H/O: HTN (hypertension) ICD Code: Z86.79 Diagnosis: Secondary (6) Shock, cardiogenic ICD Code: R57.0 Diagnosis: Principal (7) Hyperlipemia ICD Code: E78.5 Diagnosis: Secondary (8) Leukopenia ICD Code: D72.819 Diagnosis: Secondary (9) Hyponatremia ICD Code: E87.1 Diagnosis: Secondary (10) Vomiting ICD Code: R11.10 (11) Bilateral pleural effusion ICD Code: J90 Diagnosis: Secondary (12) GEORGIE (acute kidney injury) ICD Code: N17.9 Diagnosis: Secondary (13) Increased anion gap metabolic acidosis ICD Code: E87.2 Diagnosis: Secondary (14) Respiratory acidosis ICD Code: E87.2 Diagnosis: Secondary (15) Hypokalemia ICD Code: E87.6 Diagnosis: Secondary (16) Ischemic hepatitis ICD Code: K75.9 Diagnosis: Secondary (17) Lactic acidosis ICD Code: E87.2 Diagnosis: Secondary (18) Moderate protein malnutrition ICD Code: E44.0 Diagnosis: Secondary (19) Hyperglycemia ICD Code: R73.9 Diagnosis: Secondary (20) NSTEMI (non-ST elevated myocardial infarction) ICD Code: I21.4 Diagnosis: Secondary (21) Hypocalcemia ICD Code: E83.51 Diagnosis: Secondary (22) 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 There is no family at bedside. History obtained from EMR. 85-year-old female with past medical history of hypertension, dyslipidemia, hypothyroidism who presents to [facility] emergency department via [facility] as a cardiac arrest. She either had a fall or collapsed while going to the mailbox and a neighbor found her laying on the ground. She was brought inside and after about 30 minutes she was unresponsive. Upon [facility] arrival she was in PEA and ACLS was initiated. Combitube was placed per [facility]. She was given epinephrine 2 doses per E [facility] and had a brief period of ROSC with tachycardia but upon arrival to ED CPR was again in process. Combitube was removed and she was intubated with a 7.[address] Billy. She was given an additional epinephrine 1 mg, 1 amp bicarb, and one amp of calcium chloride and then had Flom. Right femoral central line was placed. She was placed in a [place] cervical collar in the ED. CT brain demonstrated no acute intracranial abnormality. There is chronic small vessel ischemic changes. CT C-spine demonstrated no evidence of fracture or dislocation. There was retropharyngeal and superior mediastinal subcutaneous emphysema which per radiology report could be consistent with traumatic intubation. There was consolidation in the right upper lobe. Chest x-ray demonstrated bilateral perihilar infiltrates. There was no appreciable pneumothorax. Her core temp was 95. She is hyponatremic with a corrected sodium of 126. She has acute kidney injury with a creatinine of 1.6 with a baseline creatinine of 0.48 in 2013. Her troponin is 0.02. Her lactic acid is 18 post arrest. She is in shock on epinephrine 10 mcg/m, norepinephrine 30 mcg/m with a mean arterial pressure of 55. There is some report that she had been vomiting after her collapse. CBC/BMP: 06/29/16 0530 06/29/16 0530 Hospital Course She became progressively more hypoxic and hypotensive throughout the night despite aggressive therapy. She was on epinephrine, vasopressin,levophed, stress dose steroids. May have sepsis secondary to Boerhaave's due to vomiting but patient never stable enough to do further CT workup and would not be operative candidate. She had a recurrent cardiac arrest with ACLS initiated and ROSC after 7 minutes. However, she remained in refractory shock and hypoxemic with sats in 40s. She ultimately went into asystole. Pupils fixed and dilated, unresponsive, asytole in 2 leads, no audible cardiac sounds or spontaneous respirations. She was pronounced at 06:23. Crys Singh MD Jul 02, 2016 08:41
--- NOTE | 2016-07-02 08:41 | DEATH SUM ---
Summary Demographics Date Pronounced : Jun 29, 2016 Time Of : 0623 Pronounced By: DR GUERRA Preliminary Cause of : Sepsis Crys Guerra MD Jul 02, 2016 08:41
== END 2016-06-29 09:53 | disposition expired | DRG 296 ==
LOC: PHED 16:22 → PHEDA 17:05 → HCVR 18:37
PROVIDERS: ADMIT Internal Medicine Critical Care Medicine; ATTEND Internal Medicine Critical Care Medicine
PROC: 0BH17EZ Insertion of Endotracheal Airway into Trachea, Via Natural or Artificial Opening (ICD-10-PCS; principal; 2016-06-28)
PROC: 04HY32Z Insertion of Monitoring Device into Lower Artery, Percutaneous Approach (ICD-10-PCS; 2016-06-28)
PROC: 5A1935Z Respiratory Ventilation, Less than 24 Consecutive Hours (ICD-10-PCS; 2016-06-28)
PROC: 06HM33Z Insertion of Infusion Device into Right Femoral Vein, Percutaneous Approach (ICD-10-PCS; 2016-06-28)
PROC: 0W9B30Z Drainage of Left Pleural Cavity with Drainage Device, Percutaneous Approach (ICD-10-PCS; 2016-06-28)
DX: I46.9 Cardiac arrest, cause unspecified (principal); J96.01 Acute respiratory failure with hypoxia; R57.0 Cardiogenic shock; J96.02 Acute respiratory failure with hypercapnia; G93.1 Anoxic brain damage, not elsewhere classified; J90 Pleural effusion, not elsewhere classified; N17.9 Acute kidney failure, unspecified; E87.4 Mixed disorder of acid-base balance; J81.1 Chronic pulmonary edema; E87.1 Hypo-osmolality and hyponatremia; J93.83 Other pneumothorax; E03.9 Hypothyroidism, unspecified; E78.5 Hyperlipidemia, unspecified; I10 Essential (primary) hypertension; R73.9 Hyperglycemia, unspecified; R11.10 Vomiting, unspecified; Z88.0 Allergy status to penicillin; Z88.2 Allergy status to sulfonamides
CPT/HCPCS: 31500; 32551; 36556; 36600; 70450; 71010; 72125; 76937; 80053; 81001; 82550; 82552; 82805; 82948; 83605; 83690; 83735; 84100; 84443; 84484; 85007; 85025; 85027; 85384; 85610; 85730; 86850; 86900; 86901; 87040; 87205; 87449; 87641; 92950; 93005; 94002; 94003; C9113; J0171; J1450; J1720; J1815; J1956; J3010; J3370; J7030; J7040; J7050; J7060